=== PATIENT | male | born 1955 | race Caucasian/White ===

== ENCOUNTER 2018-03-29 13:05 | Emergency (ER) | payer OTHER ==
[2018-03-29] MEDS ORDERED: Ondansetron INJ* 2 MG/ML VIAL IV ONE (14:23)
[2018-03-29] MEDS ORDERED: NS 0.9% 1000 ML* 1,000 ML IV ONE ×2 (14:23→15:34)
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
[2018-03-29] MEDS ORDERED: Morphine VIAL* 4 MG/ML VIAL (1 ml vial) IV ONE (14:26)
[2018-03-29 14:41] LABS: ABS Basophils 0.1 10^3/ul (0-0.2); ABS Eosinophils 0 10^3/ul (0-0.6); ABS Lymphocytes 1.9 10^3/ul (1.0-4.8); ABS Monocytes 0.9 10^3/ul (0-0.8); ABS Neutrophils 6.8 10^3/ul (1.5-7.7); ABS Nucleated RBC 0 10^3/ul; Eosinophil % 0.4 %; Hematocrit 43 % (42-52); Hemoglobin 14.1 g/dl (14.0-18.0); Lymphocyte % 19.2 %; Mean Corpuscular HGB Conc 33 g/dl (31-36); Mean Corpuscular Hemoglobin 28 pg (27-31); Mean Corpuscular Volume 86 fL (80-94); Mean Platelet Volume 8.2 fL (7.4-10.4); Nucleated Red Blood Cells % 0; Platelet Count 278 10^3/ul (150-450); Red Blood Count 5.02 10^6/ul (4.00-5.40); Red Cell Distribution Width 17 % (10.5-15); White Blood Count 9.6 10^3/ul (3.5-10.8)
[2018-03-29 15:00] LABS: Albumin/Globulin Ratio 1.8 (1-3); BUN/Creatinine Ratio 13.4 (8-20); C Reactive Protein 2.81 mg/L (<8.01); Calcium 10.2 mg/dL (8.6-10.3); EGFR Non-African American 57.7 (>60); Globulin 2.8 g/dL (2-4); Total Bilirubin 0.7 mg/dL (0.2-1.0); Total Protein 7.8 g/dL (6.4-8.9)
[2018-03-29 15:34] LABS: Urine Appearance Cloudy; Urine Bilirubin Negative (Negative); Urine Blood Negative (Negative); Urine Color Yellow; Urine Glucose 1+(50 mg/dL) (Negative); Urine Ketones 1+ (Negative); Urine Nitrite Negative (Negative); Urine Protein Negative (Negative); Urine Specific Gravity 1.013 (1.010-1.030); Urine Urobilinogen Negative (Negative)
[2018-03-29] MEDS ORDERED: PROCHLORPERAZINE INJ 5 MG/ML 2 ML VIAL IV PRN (16:42)
[2018-03-29 18:42] VITALS: BP 155/94
== END 2018-03-29 18:41 | disposition home or self-care (01) ==
LOC: ED 13:05
DX: R10.9 Unspecified abdominal pain (principal); R11.2 Nausea with vomiting, unspecified; Z87.891 Personal history of nicotine dependence; E11.8 Type 2 diabetes mellitus with unspecified complications; Z79.4 Long term (current) use of insulin; I50.9 Heart failure, unspecified; K21.9 Gastro-esophageal reflux disease without esophagitis; F32.9 Major depressive disorder, single episode, unspecified
CPT/HCPCS: 36415; 74019; 74176; 80053; 81003; 82150; 82550; 83605; 83690; 84484; 85025; 86140; 93005; 96361; 96374; 96375; 99283; J0780; J2270; J2405

== ENCOUNTER 2019-04-08 22:22 | Emergency (ER) | payer OTHER ==
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
[2019-04-08 23:00] LABS: ABS Eosinophils 0.2 10^3/ul (0-0.6); ABS Lymphocytes 1.4 10^3/ul (1.0-4.8); ABS Monocytes 0.7 10^3/ul (0-0.8); ABS Neutrophils 5.8 10^3/ul (1.5-7.7); Hematocrit 33 % (42-52); Hemoglobin 10.4 g/dL (14.0-18.0); Lymphocyte % 17.3 %; Mean Corpuscular HGB Conc 32 g/dL (31-36); Mean Corpuscular Hemoglobin 25 pg (27-31); Mean Corpuscular Volume 78 fL (80-94); Mean Platelet Volume 8.1 fL (7.4-10.4); Platelet Count 275 10^3/uL (150-450); Red Blood Count 4.19 10^6 /uL (4.18-5.48); Red Cell Distribution Width 18 % (10-15); White Blood Count 8.1 10^3/uL (3.5-10.8)
[2019-04-08 23:17] LABS: Albumin 3.8 g/dL (3.2-5.2); Albumin/Globulin Ratio 1.2 (1-3); BUN/Creatinine Ratio 19.7 (8-20); Calcium 8.7 mg/dL (8.6-10.3); EGFR African American 40.5 (>60); EGFR Non-African American 33.4 (>60); Globulin 3.1 g/dL (2-4); Potassium 3.1 mmol/L (3.5-5.0); Total Bilirubin 0.4 mg/dL (0.2-1.0); Total Protein 6.9 g/dL (6.4-8.9)
[2019-04-08 23:19] LABS: Troponin I 0.02 ng/mL (<0.03)
[2019-04-08] MEDS ORDERED: NS 0.9% 500 ML* 500 ML IV ONE (23:45)
[2019-04-08] MEDS ORDERED: KCL 20 MEQ/100 ML IVPREMIX* 20 MEQ/100 ML BAG IV ONE (23:48)
[2019-04-08 23:57] LABS: TSH (Thyroid Stimulating Horm) 0.39 mcIU/mL (0.34-5.60)
[2019-04-09] MEDS ORDERED: NS 0.9% 500 ML* 500 ML IV ONE (01:26)
[2019-04-09 02:54] VITALS: BP 128/85
== END 2019-04-09 02:53 | disposition home or self-care (01) ==
LOC: ED 22:22
DX: E87.6 Hypokalemia (principal); E86.0 Dehydration; R55 Syncope and collapse; Z87.891 Personal history of nicotine dependence; I11.0 Hypertensive heart disease with heart failure; I50.9 Heart failure, unspecified; J44.9 Chronic obstructive pulmonary disease, unspecified; K21.9 Gastro-esophageal reflux disease without esophagitis; F32.9 Major depressive disorder, single episode, unspecified; Z79.899 Other long term (current) drug therapy
CPT/HCPCS: 36415; 70450; 80053; 83605; 83735; 83880; 84443; 84484; 85025; 93005; 96361; 96365; 96366; 99284; J3480